=== PATIENT | female | born 1970 | race Caucasian/White ===

== ENCOUNTER 2023-06-11 10:42 | Day surgery (SDC) | payer BC, SELFPAY ==
--- NOTE | 2023-06-10 09:59 | HO.ANESPROP2 ---
Documented by User: Elda Patton NP 06/10/23 10:00 HPI - Anesthesia Eval Consult details Narrative: 52yo F for Colonoscopy [facility] Past Medical History Medical History (Updated 06/10/23 @ 06:38 by Ambar Moreland, JAIME) Anxiety Depressed HTN (hypertension) Hyperlipemia Migraine Psoriasis Surgical History Surgical History (Updated 06/10/23 @ 06:37 by Ambar Moreland RN) Hx of carpal tunnel repair Social History Social History Advance Directives: No Advance Directives Information Provided: Yes Meds Allergies Allergy/AdvReac Type Severity Reaction Status Date / Time No Known Allergies Allergy Unverified 06/06/23 18:28 Home Medications Medication Instructions Recorded Confirmed Last Taken Type atorvastatin 10 mg tablet 10 mg PO DAILY 06/10/23 06/10/23 Unknown History budesonide 180 mcg/actuation 2 inh inhalation BID 06/10/23 06/10/23 Unknown History breath activated powder inhaler (Pulmicort Flexhaler) bupropion HCl 100 mg tablet 100 mg PO DAILY 06/10/23 06/10/23 Unknown History duloxetine 30 mg capsule,delayed 30 mg PO DAILY 06/10/23 06/10/23 Unknown History release fluticasone propionate 110 2 puff inhalation BID 06/10/23 06/10/23 Unknown History mcg/actuation HFA aerosol inhaler (Flovent HFA) hydrochlorothiazide 25 mg tablet 25 mg PO DAILY 06/10/23 06/10/23 Unknown History ipratropium bromide 17 inhalation 06/10/23 Unknown History mcg/actuation HFA aerosol inhaler (Atrovent HFA) trazodone 50 mg tablet 50 - 100 mg PO BEDTIME PRN Sleep 06/10/23 06/10/23 Unknown History Exam Exam Date and Time: June 10, 2023 0959 Assessment and Plan Assessment Anesthesia Assessment: Chart Reviewed Documented by User: Kurtis Pineda MD 06/11/23 10:57 [facility] Past Medical History Medical History (Updated 06/10/23 @ 06:38 by Ambar Moreland RN) Anxiety Depressed HTN (hypertension) Hyperlipemia Migraine Psoriasis Family History Family history of problems with anesthesia: No Surgical History Surgical History (Updated 06/10/23 @ 06:37 by Ambar Moreland RN) Hx of carpal tunnel repair History of Problems with Anesthesia: No Social History Social History Advance Directives: No Advance Directives Information Provided: Yes Meds Allergies Allergy/AdvReac Type Severity Reaction Status Date / Time No Known Allergies Allergy Unverified 06/06/23 18:28 Home Medications Medication Instructions Recorded Confirmed Last Taken Type atorvastatin 10 mg tablet 10 mg PO DAILY 06/10/23 06/10/23 Unknown History budesonide 180 mcg/actuation 2 inh inhalation BID 06/10/23 06/10/23 Unknown History breath activated powder inhaler (Pulmicort Flexhaler) bupropion HCl 100 mg tablet 100 mg PO DAILY 06/10/23 06/10/23 Unknown History duloxetine 30 mg capsule,delayed 30 mg PO DAILY 06/10/23 06/10/23 Unknown History release fluticasone propionate 110 2 puff inhalation BID 06/10/23 06/10/23 Unknown History mcg/actuation HFA aerosol inhaler (Flovent HFA) hydrochlorothiazide 25 mg tablet 25 mg PO DAILY 06/10/23 06/10/23 Unknown History ipratropium bromide 17 inhalation 06/10/23 Unknown History mcg/actuation HFA aerosol inhaler (Atrovent HFA) trazodone 50 mg tablet 50 - 100 mg PO BEDTIME PRN Sleep 06/10/23 06/10/23 Unknown History Exam Airway Mallampati Class: II TM Dist: >3cm Neck ROM: Limited Heart: rrr Lungs: cta Assessment and Plan Assessment Anesthesia Assessment: Anesthesia Plan Discussed Final Anesthetic Review Family History of Problems with Anesthesia: No History of Problems with Anesthesia: No NPO: Yes ASA Class: II Final Preanesthetic Review: No Changes in Pt Med Stat, Meds/Allgs Chart Reviewed, Consent Obtained/Reviewed and Anes Risks/Benef Reviewed Patient Risk: Low Procedure Risk: Low Anesthetic Plan Anesthetic Plan: MAC: Disposition: Standard PACU
--- NOTE | 2023-06-11 10:41 | PC.NURSE ---
dr. diana reviewed luly labs, declined ordered labwork of cbc.
[2023-06-11 11:02] VITALS: BP 107/57; PULSE 79; RESP 18; TEMP 36.3; O2SAT 98; BMI 37.0
[2023-06-11] MEDS: Lactated Ringers 1,000 ML 100 ML IVCONT (11:21)
[2023-06-11 13:03] VITALS: BP 108/72; PULSE 73; RESP 16; TEMP 36.4; O2SAT 97
--- NOTE | 2023-06-11 13:06 | PM.OP ---
Brief Operative Note Date of Service: 06/11/23 Pre-op diagnosis: Screening Post-op diagnosis: other (Colon polyp) Procedure: Colonoscopy to the cecum and TI with bx/removal of polyp Surgeon: Stone Ruiz Anesthesia: MAC Was an Safety And Security Officer used for this Procedure?: No Estimated blood loss (mL): 2.0 Pathology: other (A. Ascending colon polyp) Condition: stable Disposition: PACU
[2023-06-11 13:18] VITALS: BP 119/73; PULSE 76; RESP 16; O2SAT 98
[2023-06-11 13:33] VITALS: BP 123/73; PULSE 76; RESP 16; TEMP 37.1; O2SAT 98
--- NOTE | 2023-06-11 13:38 | OP_ITS ---
DATE OF SERVICE: 06/11/2023 SURGEON: Stone Ruiz MD INDICATIONS: The patient presents for evaluation of colorectal cancer screening. Full consent has been obtained from her for this, including risks of bleeding and perforation. PREOPERATIVE DIAGNOSIS: Colorectal cancer screening. POSTOPERATIVE DIAGNOSIS: PROCEDURE PERFORMED: Colonoscopy to the cecum and terminal ileum with biopsy and removal of polyp. ESTIMATED BLOOD LOSS: COMPLICATIONS: ANESTHESIA: Monitored anesthesia care. ASSISTANTS: SPECIMENS: POSTOPERATIVE DIAGNOSES: Colorectal cancer screening, small colon polyp, mild diverticulosis, and small internal hemorrhoids. DESCRIPTION OF PROCEDURE: The patient was placed in the left lateral decubitus position. The digital rectal exam revealed no abnormalities. The Olympus video pediatric colonoscope was entered into the rectum and advanced easily to the cecum. Once in the cecum, I did identify normal-appearing cecal pouch with appendiceal orifice a normal-appearing ileocecal valve. The terminal ileum was cannulated and appeared normal. The scope was withdrawn back in the colon. The entire cecum and ileocecal valve appeared normal. The scope was then slowly withdrawn assessing all mucosal surfaces carefully. Preparation was excellent. In the ascending colon was a flat approximately 3 or 4 mm polyp, which was biopsied and completely removed with a cold biopsy forceps. I did not visualize any other polyps, colitis, nor angiodysplasia. There was a mild amount of sigmoid diverticulosis. In the rectum, the scope was retroflexed visualizing small internal hemorrhoids, but no other pathology. The rectal mucosa appeared normal. The scope was straightened and withdrawn from the patient. She tolerated the procedure well and was returned to the recovery area in stable condition. IMPRESSION: 1. Small colon polyp. 2. Mild diverticulosis. 3. Small internal hemorrhoids. PLAN: The results of the pathology will be checked. If this is a tubular adenoma, I would recommend a followup colonoscopy in 5 years. If it is only hyperplastic, I would recommend a followup colonoscopy in 10 years. She will otherwise see me on a p.r.n. basis. This has been discussed with her . MD SETH Reynoso/RICO / [id number] MTDHollis
== END 2023-06-11 13:52 | disposition home or self-care (01) ==
PROVIDERS: PCP Internal Medicine; Visit Provider Internal Medicine
PROC: 0DJD8ZZ Inspection of Lower Intestinal Tract, Via Natural or Artificial Opening Endoscopic (ICD-10-PCS; CPT 45378; principal; 2023-06-11 12:00)
DX: Z12.11 Encounter for screening for malignant neoplasm of colon (principal); D12.2 Benign neoplasm of ascending colon; K57.30 Diverticulosis of large intestine without perforation or abscess without bleeding; K64.8 Other hemorrhoids; I10 Essential (primary) hypertension; E78.5 Hyperlipidemia, unspecified; J45.909 Unspecified asthma, uncomplicated; Z79.899 Other long term (current) drug therapy
CPT/HCPCS: 45380; 88305; J2250